=== PATIENT | female | born 1990 | race Caucasian/White ===

== ENCOUNTER 2019-12-07 07:09 | Emergency (ER) | payer OTHER ==
[2019-12-07 07:15] VITALS: BP 148/99; PULSE 86; RESP 18; TEMP 98.1
[2019-12-07] MEDS ORDERED: PENICILLIN VK 500MG STARTER 4 TAB BTL PO STA (07:40)
--- NOTE | 2019-12-07 07:41 | ED ---
General Adult HPI - General Chief complaint: ENT Stated complaint: jaw swelling Time Seen by Provider: 12/07/19 07:27 Source: patient, RN notes reviewed Mode of arrival: ambulatory Limitations: no limitations - History of Present Illness Initial comments: Patient is a pleasant 29-year-old female presenting to the emergency Department with complaints of some swelling to her left lower jaw. Onset of symptoms was yesterday. Patient has noticed some more discomfort and swelling to the night. No history of similar symptoms previously. No fever. No known dental problems. No dyspnea or difficulty with swallowing. No other areas of involvement. - Related Data Previous Rx's Medication Instructions Recorded Penicillin V Potassium [Pen Vee K] 500 mg PO QID #40 tablet 12/07/19 Allergies Allergy/AdvReac Type Severity Reaction Status Date / Time No Known Allergies Allergy Verified 12/07/19 07:15 Review of Systems ROS Statement: Those systems with pertinent positive or pertinent negative responses have been documented in the HPI. ROS Other: All systems not noted in ROS Statement are negative. Constitutional: Denies: fever Eyes: Denies: eye pain ENT: Reports: as per HPI. Denies: ear pain Respiratory: Denies: cough, dyspnea Cardiovascular: Denies: chest pain Endocrine: Denies: fatigue Gastrointestinal: Denies: abdominal pain Genitourinary: Denies: dysuria Musculoskeletal: Denies: back pain Skin: Denies: rash Neurological: Denies: weakness Past Medical History Past Medical History: GERD/Reflux History of Any Multi-Drug Resistant Organisms: None Reported Past Surgical History: No Surgical Hx Reported Past Psychological History: Depression Smoking Status: Former smoker Past Alcohol Use History: Occasional Past Drug Use History: None Reported General Exam Limitations: no limitations General appearance: alert, in no apparent distress Head exam: Present: normocephalic Eye exam: Present: normal appearance ENT exam: Present: normal oropharynx, other (Left lower jaw with mild amount of swelling. No obvious gum swelling. No significant localized dental decay. Mild tenderness) Neck exam: Present: normal inspection. Absent: tenderness, meningismus, l ymphadenopathy Respiratory exam: Present: normal lung sounds bilaterally Cardiovascular Exam: Present: regular rate, normal rhythm Neurological exam: Present: alert Psychiatric exam: Present: normal affect, normal mood Skin exam: Present: normal color Course Vital Signs 12/07/19 07:10 Temperature 98.1 F Pulse Rate 86 Respiratory 18 Rate Blood Pressure 148/99 O2 Sat by Pulse 98 Oximetry Medical Decision Making - Medical Decision Making Patient presents with mild swelling that is palpable to the left lower jaw. Secondary to location there is concern of probable early dental abscess is patient is made aware of this. There is also possibility of lymph node enlargement which patient is also made aware of. Patient will be covered with antibiotics and recommended follow-up. Disposition Clinical Impression: Jaw swelling Disposition: HOME SELF-CARE Condition: Stable Instructions (If sedation given, give patient instructions): Dental Abscess (ED), Lymphadenopathy (ED) Additional Instructions: Please follow-up with dentist and primary care physician in the next couple days for recheck. Return for increased pain, swelling, fevers, redness, worsening symptoms or other concerns. Description sent to [facility] in [facility] Prescriptions: Penicillin V Potassium [Pen Vee K] 500 mg PO QID #40 tablet Is patient prescribed a controlled substance at d/c from ED?: No Referrals: Ramirez Tidwell MD [STAFF PHYSICIAN] - 1-2 days Time of Disposition: 07:36
== END 2019-12-07 07:45 | disposition home or self-care (01) ==
LOC: EC 07:09
DX: R22.0 Localized swelling, mass and lump, head (principal); Z87.891 Personal history of nicotine dependence
CPT/HCPCS: 99283

== ENCOUNTER → 2023-07-20 | Outpatient (CLI) | payer OTHER ==
[2023-07-20 12:50] VITALS: BP 122/76; PULSE 101; TEMP 98; BMI 50.5
--- NOTE | 2023-07-20 16:54 | P.HPBAR ---
Bariatric H&P - History & Physicial H&P Date: 07/20/23 History & Physicial: Visit/CC: initial clinic visit Patient initial contact: Initial weight: Initial weight in pounds: Height: 5 ft 3 in Initial BMI: Last weight: Current weight: 129.274 kg Current weight in pounds: 285.00 Current BMI: 50.5 [place] body weight (based on NIH guidelines): 52.163 kg Excess body weight loss: The patient is a 32 year-old F who presents for Bariatric Assessment. Patient is here to discuss bariatric surgery with me. She is interested in sleeve gastrectomy. Has been considering weight loss surgery for a few years. She has tried a variety of different medications without success. Patient suffers from comorbidities including chronic back pain, chronic hip pain. She states she is being tested for sleep apnea. Denies tobacco use. Mild reflux symptoms that time. Usually has reflux maybe once per week. She does not take medications for this. No history of DVT or dysphagia. Review of Systems The patient denies any acute changes in vision or hearing, no dysphagia or odynophagia, no chest pain or shortness of breath, no dysuria or hematuria, no headache, no runny nose, no rectal bleeding or melena, no unexplained weight loss Past Medical History Past Medical History: GERD/Reflux, Osteoarthritis (OA) Additional Past Medical History / Comment(s): bilateral hip pain History of Any Multi-Drug Resistant Organisms: None Reported Past Surgical History: No Surgical Hx Reported Past Anesthesia/Blood Transfusion Reactions: No Reported Reaction Past Psychological History: Depression Smoking Status: Current every day smoker Past Alcohol Use History: Occasional Past Drug Use History: None Reported Surgical - Exam Vital Signs Temp Pulse BP 98 F 101 H 122/76 07/20/23 12:35 07/20/23 12:35 07/20/23 12:35 Physical exam: General: Well-developed, well-nourished HEENT: Normocephalic, sclerae nonicteric Abdomen: Nontender, nondistended Extremities: No edema Neuro: Alert and oriented Bariatric Assessment & Plan (1) Morbid obesity with BMI of 50.0-59.9, adult Narrative/Plan: 32-year-old female with morbid obesity and associated coronary disease. Patient is interested in laparoscopic sleeve gastrectomy. She and I discussed the risks benefits and expected weight loss of the commonly performed weight loss surgeries including sleeve gastrectomy. We'll tentatively plan preoperative EGD at this time. She will continue to consider her options. She will notify me of any changes. Status: Acute Bariatric Checklist Checklist: Plan: Checklist: EGD: 1. Hiatal hernia: 2. H. Pylori: HgbA1c: Vitamin D: Smoking: Former smoker Primary care physician referral: Dr Leach Psychiatry clearance: Cardiology clearance: Sleep study: Diet journal: VTE risk score: VTE risk level: Rehab needs at discharge:
== END ==
LOC: BARWHC3 12:06
PROVIDERS: ATTEND Surgery
DX: E66.01 Morbid (severe) obesity due to excess calories (principal); I25.10 Atherosclerotic heart disease of native coronary artery without angina pectoris; F32.A Depression, unspecified; K21.9 Gastro-esophageal reflux disease without esophagitis; M19.90 Unspecified osteoarthritis, unspecified site; F17.200 Nicotine dependence, unspecified, uncomplicated; Z68.43 Body mass index [BMI] 50.0-59.9, adult
CPT/HCPCS: 99212

== ENCOUNTER → 2023-07-21 | Outpatient (CLI) | payer OTHER ==
[2023-07-21 15:02] LABS: HCT 42.9 % (37.2-46.3); HGB 14.2 g/dL (12.0-15.0); MCHC 33.1 g/dL (32.0-37.0); MCV 93.7 FL (80.0-97.0); Mean Platelet Volume 9.7 FL (9.5-12.2); NRBC Per 100 WBC 0 X 10*3/uL (0.00-0.01); Platelet Count 431 X 10*3/uL (140-440); RBC 4.58 X 10*6/uL (4.10-5.20); RDW 13.1 % (11.5-14.5); WBC 8.28 X 10*3/uL (4.50-10.00)
[2023-07-21 15:22] LABS: Iron 93 UG/DL (50-170)
[2023-07-21 15:23] LABS: ALT 16 U/L (8-44); AST 20 U/L (13-35); Albumin 4.1 g/dL (3.8-4.9); Albumin/Globulin Ratio 1.41 Ratio (1.60-3.17); Alkaline Phosphatase 76 U/L (41-126); BUN/Creat Ratio 17.38 Ratio (12.00-20.00); Blood Urea Nitrogen 13.9 mg/dL (9.0-27.0); Calcium 9.7 mg/dL (8.7-10.3); Carbon Dioxide 26.8 mmol/L (21.6-31.8); Chloride 103 mmol/L (96-109); Globulin 2.9 g/dL (1.6-3.3); Glucose 104 mg/dL (70-110); Potassium 4.5 mmol/L (3.5-5.5); Sodium 142 mmol/L (135-145); Total Bilirubin 0.3 mg/dL (0.3-1.2)
== END | disposition home or self-care (01) ==
LOC: LABWHC1 10:37
PROVIDERS: ATTEND Surgery
DX: E66.01 Morbid (severe) obesity due to excess calories (principal); E89.1 Postprocedural hypoinsulinemia; E55.9 Vitamin D deficiency, unspecified; K90.89 Other intestinal malabsorption
CPT/HCPCS: 36415; 80053; 82306; 82607; 82746; 83036; 83540; 85027; 93005

== ENCOUNTER 2023-09-14 09:47 | Day surgery (SDC) | payer OTHER ==
[~2023-09-14 09:47] MED LIST: LIDOCAINE 1% (10MG/ML) FOR IV START INTRADERMA PRN; ONDANSETRON 4 MG/2 ML VIAL IVP PRN
[2023-09-14] MEDS: LACTATED RINGERS 1,000 ML IV SCH (10:49)
[2023-09-14] MEDS ORDERED: LIDOCAINE 1% INJ 10MG/ML (20 ML MDV) ONE (10:55)
[2023-09-14] MEDS ORDERED: PROPOFOL 10 MG/ML 20 ML VIAL IV ONE (10:55)
--- NOTE | 2023-09-14 10:58 | P.GSHP ---
History of Present Illness H&P Date: 09/14/23 Chief Complaint: GERD, presurgical 33-year-old female here for upper endoscopy. Patient being evaluated for possible sleeve gastrectomy. Mild reflux symptoms. No dysphagia. Past Medical History Past Medical History: GERD/Reflux, Osteoarthritis (OA) Additional Past Medical History / Comment(s): bilateral hip pain History of Any Multi-Drug Resistant Organisms: None Reported Past Surgical History: No Surgical Hx Reported Additional Past Surgical History / Comment(s): wisdom teeth Past Anesthesia/Blood Transfusion Reactions: No Reported Reaction Smoking Status: Former smoker - Past Family History Mother Family Medical History: Cancer Additional Family Medical History / Comment(s): leukemia Medications and Allergies Home Medications Medication Instructions Recorded Confirmed Type ARIPiprazole 10 mg PO DAILY 07/21/23 09/14/23 History Cariprazine HCl [Vraylar] 3 mg PO DAILY 07/21/23 09/14/23 History FLUoxetine HCL [PROzac] 20 mg PO DAILY 07/21/23 09/14/23 History Venlafaxine HCl [Effexor] 50 mg PO DAILY 07/21/23 09/14/23 History lisinopriL [Zestril] 5 mg PO DAILY 07/21/23 09/14/23 History Allergies Allergy/AdvReac Type Severity Reaction Status Date / Time No Known Allergies Allergy Verified 09/14/23 10:33 Surgical - Exam Vital Signs Temp Pulse Resp BP Pulse Ox 97.6 F 99 16 152/77 99 09/14/23 10:39 09/14/23 10:39 09/14/23 10:39 09/14/23 10:39 09/14/23 10:39 Physical exam: General: Well-developed, well-nourished HEENT: Normocephalic, sclerae nonicteric Abdomen: Nontender, nondistended Extremities: No edema Neuro: Alert and oriented Assessment and Plan (1) GERD (gastroesophageal reflux disease) Narrative/Plan: 33-year-old female here for EGD. Current Visit: Yes Status: Acute Code(s): K21.9 - GASTRO-ESOPHAGEAL REFLUX DISEASE WITHOUT ESOPHAGITIS SNOMED Code(s): 234708401
[2023-09-14 11:06] VITALS: RESP 16; TEMP 97.6
--- NOTE | 2023-09-14 11:06 | P.PCN ---
Date of Procedure: 09/14/23 Procedure(s) Performed: Preoperative Dx: GERD, presurgical Postoperative Dx: Mild gastritis, small submucosal gastric nodule, small hiatal hernia Procedure: EGD with Bx Anesthesia: Sedation Endoscopist: Dr. Leiva Specimens: Antrum, gastric nodule Endoscopic Procedure: The patient was on the endoscopy table in the left decubitus position. The Olympus gastroscope was inserted into the oropharynx and passed under direct visualization to the region of the third portion of the duodenum. From that point the scope was slowly withdrawn inspecting all surfaces carefully. There were no neoplastic inflammatory or polypoid lesions throughout the duodenum. The pylorus was widely patent. The stomach was ca refully inspected. There was minimal gastritis present. In the antrum there was a small submucosal nodule measuring 1 cm or less along the greater curvature. A biopsy of the overlying mucosa took place. Retroflexion revealed a small sliding hiatal hernia. The GE junction was present 1 to 1.5 cm above the diaphragmatic hiatus. The remainder the esophagus was examined and appeared normal. The patient was then taken to the recovery room in stable condition per anesthesia guidelines. Recommendations: Await biopsy results. Likely will send for advanced endoscopic submucosal resection of this submucosal nodule.
[2023-09-14 11:35] VITALS: BP 125/91
[2023-09-14 11:36] VITALS: PULSE 77
== END 2023-09-14 11:45 | disposition home or self-care (01) ==
LOC: ORWHC2ENDO 09:47
PROVIDERS: ATTEND Surgery
DX: K29.50 Unspecified chronic gastritis without bleeding (principal); K44.9 Diaphragmatic hernia without obstruction or gangrene; K21.9 Gastro-esophageal reflux disease without esophagitis; F41.9 Anxiety disorder, unspecified; F32.A Depression, unspecified; M19.90 Unspecified osteoarthritis, unspecified site; Z96.643 Presence of artificial hip joint, bilateral; Z87.891 Personal history of nicotine dependence; Z80.6 Family history of leukemia; Z79.899 Other long term (current) drug therapy; Z98.890 Other specified postprocedural states
CPT/HCPCS: 81025; 88305; 43239; J2001; J2704; 88342

== ENCOUNTER → 2023-09-28 | Outpatient (CLI) | payer OTHER ==
[2023-09-28 14:34] VITALS: BP 137/87; PULSE 92; RESP 16; TEMP 98.4; BMI 53.6
--- NOTE | 2023-09-28 15:33 | P.BASOAP ---
Subjective Progress Note Date: 09/28/23 Principal diagnosis: Morbid obesity Patient returns for recheck. Was recently seen and underwent upper endoscopy. Patient was found to have small hiatal hernia and submucosal gastric nodule. Biopsies benign. Feeling well. Objective - Vital Signs Vital signs: Vital Signs Temp 98.4 F 09/28/23 14:04 Pulse 92 09/28/23 14:04 Resp 16 09/28/23 14:04 BP 137/87 09/28/23 14:04 Pulse Ox FiO2 Intake & Output 09/27/23 09/28/23 09/28/23 18:59 06:59 18:59 Weight 137.438 kg - Exam Abdomen: Soft, nontender, nondistended Assessment/Plan (1) Morbid obesity with BMI of 50.0-59.9, adult Narrative/Plan: 33-year-old female with morbid obesity. Recent EGD showing submucosal gastric nodule. Unfortunately this is near the start of our anticipated staple line. As per previous discussion with patient recommend she be seen by advanced GI for endoscopic resection. Will make arrangements. We did reviewed the surgical consent form in detail. All questions answered. Will require simultaneous repair hiatal hernia at time of sleeve gastrectomy. Increased risk of postoperative reflux again reviewed. Plan: Date: 09/28/23 Initial Weight: 129.274 kg Initial BMI: 50.5 Current Weight: 137.438 kg Current BMI: 53.6 Type of Surgery: Total Volume in Band: Previous Volume: Volume Removed: Volume Added: Band Size:
== END ==
LOC: BARWHC3 13:55
PROVIDERS: ATTEND Surgery
DX: E66.01 Morbid (severe) obesity due to excess calories (principal); K44.9 Diaphragmatic hernia without obstruction or gangrene; K31.89 Other diseases of stomach and duodenum; Z68.43 Body mass index [BMI] 50.0-59.9, adult; Z87.891 Personal history of nicotine dependence
CPT/HCPCS: 99211